=== PATIENT | female | born 1970 | race Caucasian/White ===

== ENCOUNTER → 2021-11-11 11:09 | Outpatient (CLI) | payer BC, SELFPAY ==
--- NOTE | ~2021-11-11 | XR_ITS ---
EXAM: XR knee RT 3V DATE: 11/11/2021 11:38 HISTORY: M25.569 - Pain in unspecified knee . COMPARISON: None available. FINDINGS: Normal mineralization. No fracture or dislocation. No lytic or blastic lesion. Joint space s are maintained. Mild patellofemoral osteophytosis and quadriceps enthesopathy. No erosion or perios teal change. Soft tissues within normal limits. Moderate volume joint fluid. IMPRESSION: No acute osseous finding in the right knee. Moderate right knee joint effusion.. Reviewed, dictated and finalized at location K. IMPRESSION: No acute osseous finding in the right knee. Moderate right knee tay nt effusion..
== END ==
PROVIDERS: PCP Internal Medicine; Visit Provider Internal Medicine
DX: M25.561 Pain in right knee (principal)
CPT/HCPCS: 73562

== ENCOUNTER → 2022-01-19 11:02 | Outpatient (CLI) | payer BC, SELFPAY ==
--- NOTE | ~2022-01-19 | XR_ITS ---
XR foot LT min 3V DATE: 01/19/2022 11:38 INDICATION: Left foot pain TECHNIQUE: 4 views COMPARISON: None FINDINGS: There is slight posterior and minimal plantar calcaneal enthesopathy. No fracture or dislocation, periosteal reaction or bone destruction is detected. IMPRESSION: Calcaneal enthesopathy Reviewed, dictated and finalized at location B. IMPRESSION: Calcaneal enthesopathy
== END ==
PROVIDERS: PCP Internal Medicine; Visit Provider Internal Medicine
DX: M79.672 Pain in left foot (principal); M77.32 Calcaneal spur, left foot
CPT/HCPCS: 73630

== ENCOUNTER → 2022-08-19 10:44 | Outpatient (CLI) | payer BC, SELFPAY ==
--- NOTE | ~2022-08-19 | CT_ITS ---
CT Scan of the Chest without Contrast: Clinical Indication: Lung cancer screening, 40 pack-year smoking history, current smoker Technique: Contiguous sections were acquired throughout the chest without intravenous contrast. Dose reduction technique was used on this scan by utilizing automated exposure control and iterative recon struction technique. The dose-length product (DLP) was 214.00 mGy-cm. Findings: There is no evidence of any significant mediastinal, hilar or axillary lymphadenopathy. The mediastin al soft tissues appear normal. There is no evidence of pleural or pericardial effusion. The lungs are clear. No pulmonary nodules or infiltrates are noted. Minimal right apical paraseptal e mphysematous change noted. Images through the upper abdomen reveal small left adrenal adenoma. Impression: Lung-RADS 1: Negative. 12 month follow-up screening CT advised. Reviewed, dictated and finalized at [facility]. Impression: Lung-RADS 1: Negative. 12 month follow-up screening CT advised.
== END ==
PROVIDERS: PCP Family Medicine; Visit Provider Family Medicine
DX: Z12.2 Encounter for screening for malignant neoplasm of respiratory organs (principal); F17.210 Nicotine dependence, cigarettes, uncomplicated
CPT/HCPCS: 71271

== ENCOUNTER 2023-06-29 08:59 | Outpatient (CLI) | payer BC, SELFPAY ==
--- NOTE | 2023-07-01 16:59 | WPDHOMESLEEP ---
Sleep Study - Home Unattended Date of Study: 06/29/23 Ordering Provider: Filippo Rodríguez DO Interpreting Provider: Sophie Hernandez MD Home Sleep Study Type: Watch PAT Height: 1.7 m Weight: 104.326 kg Body Mass Index: 36.0 Neck Circumference (inches): 15.25 [place]: 17 Reason for Sleep Study Hypersomnolence Sleep History Loli Jeffery is a 53-year-old woman with excessive daytime sleepiness. She has a family history of sleep issues, her mother uses CPAP. medical comorbidities include allergies, back shoulder and elbow pain, hot flashes and IBS with constipation. She rarely awakens from sleep short of breath. She frequently wakes at night with heartburn, belching or coughing.??She frequent snores, frequently snores loudly enough that others complain. She frequently has trouble sleeping when she has a cold. She rarely wakes up gasping for breath during the night. She occasionally has breathing problems at night reported to her by others. She frequently sweats excessively at night. She rarely notices her heart pounding or beating irregularly during the night. She constantly falls asleep during the day. She rarely falls asleep involuntarily, never falls asleep while driving. She never experiences loss of muscle tone with strong emotion. She never feels paralyzed on waking or falling asleep. She occasionally experiences vivid dreams upon waking or falling asleep. She never feels afraid of going to sleep. She rarely has nightmares. She rarely recalls her dreams. She rarely has thoughts racing through her mind. She never feels sad or depressed. She never feels anxiety. She rarely notices parts of her body jerk. She is not aware if she kicks during the night. She occasionally feels crawling or aching feelings in her legs. She frequently feels leg pain at night. She frequently has morning jaw pain, and frequently grinds her teeth at night. She frequently feels bothered by pain during the day, is occasionally awakened by pain during the night. She frequently wakes up feeling stiff in the morning, frequently wakes feeling sore or achy in the morning. She frequently awakens with pain in her neck, spine, or joints. She has headaches, bowel disturbances, fatigue, insomnia, and daily memory problems. She takes antacids regularly. She has had no change in her weight during the last year. Normal bedtime is between 9:00 p.m. and 11:00 p.m., falling asleep within 30 minutes to 45 minutes, waking 2-3 times during the night. While awake at night, she gets something to drink. She returns to sleep within 20-30 minutes.She wakes between 8:00 a.m. to 9:00 a.m., reports getting between 4 and 6 hours of sleep interrupted sleep per night. She takes naps in the afternoon or evening. A short nap lasting 10-15 minutes is not refreshing. She is usually drowsy all day long. Habits:??Tobacco: 0.5 to 1 pack per day for 35 years Caffeine: 1 pot of coffee per day. Alcohol: none Recreational substances: none [facility] Past Medical History Medical History (Updated 07/01/23 @ 18:04 by Sophie Hernandez MD) Anxiety and depression Hypersomnia Surgical History Surgical History H/O tubal ligation H/O: History of cholecystectomy Family History Family History Father Hypertension Family history of elevated blood lipids Family history of diabetes mellitus in first degree relative Mother Hypertension Family history of elevated blood lipids Family history of malignant neoplasm of breast in first degree relative Sibling Hypertension Family history of elevated blood lipids Grandparent Family history of heart disease in male family member before age 55 Social History Social History Social History: caffeine- 1.5 pots of coffee daily Smoking packs per day: 1 Smoking cigarett
[2023-07-01 17:52] VITALS: BMI 36.0
== END 2023-06-30 07:30 | disposition home or self-care (01) ==
LOC: ANHCSM 09:01
PROVIDERS: PCP Family Medicine; Visit Provider Family Medicine
DX: G47.33 Obstructive sleep apnea (adult) (pediatric) (principal); G47.10 Hypersomnia, unspecified; Z68.36 Body mass index [BMI] 36.0-36.9, adult
CPT/HCPCS: 95800

== ENCOUNTER 2023-07-07 08:40 | Outpatient (CLI) | payer BC, SELFPAY ==
--- NOTE | 2023-08-01 11:28 | WPDSLEEPSTUD ---
Sleep Study Date of Study: 07/07/23 Ordering Provider: Filippo Rodríguez DO Interpreting Physician: Sophie Hernandez MD Sleep Study Type: CPAP Titration Height: 1.7 m Weight: 102.965 kg Body Mass Index: 35.5 Neck Circumference (inches): 16 [place]: 17 Reason for Sleep Study Hypersomnolence; home sleep test using WatchPat on 06/29/2023 showing severe obstructive sleep apnea, the apnea-hypopnea index is 52.2, desaturation to 76% and loud continuous snoring.? The patient spent 29 minutes equal to or below 88% saturation, 5.3% of sleep time. She returns for CPAP titration. She has ?a history of grinding her teeth at night and restless leg symptoms. Sleep History Loli Jeffery is a 53-year-old woman with excessive daytime sleepiness, has severe obstructive sleep apnea on a home sleep test 06/29/2023. She has a family history of sleep issues, her mother uses CPAP. ? medical comorbidities include allergies, back shoulder and elbow pain, hot flashes and IBS with constipation. She rarely awakens from sleep short of breath.? She frequently wakes at night with heartburn, belching or coughing.??She frequent snores, frequently snores loudly enough that others complain. She frequently has trouble sleeping when she has a cold.? She rarely wakes up gasping for breath during the night. She occasionally has breathing problems at night reported to her by others. She frequently sweats excessively at night. She rarely notices her heart pounding or beating irregularly during the night.? She constantly falls asleep during the day.? She rarely falls asleep involuntarily, never falls asleep while driving. She never experiences loss of muscle tone with strong emotion.? She never feels paralyzed on waking or falling asleep. She occasionally experiences vivid dreams upon waking or falling asleep. She never feels afraid of going to sleep. She rarely has nightmares. She rarely recalls her dreams. She rarely has thoughts racing through her mind. She never feels sad or depressed. She never feels anxiety. She rarely notices parts of her body jerk.? She is not aware if she kicks during the night. She?occasionally feels crawling or aching feelings in her legs. She?frequently feels leg pain at night. She?frequently has morning jaw pain, and?frequently grinds her teeth?at night.? She frequently feels bothered by pain during the day, is occasionally awakened by pain during the night. She frequently wakes up feeling stiff in the morning,? frequently wakes feeling sore or achy in the morning.? She frequently awakens with pain in her neck, spine, or joints.? She has headaches, bowel disturbances, fatigue, insomnia, and daily memory problems. She takes antacids regularly.? She has had no change in her weight during the last year. Normal bedtime is between 9:00 p.m. and 11:00 p.m., falling asleep within 30 minutes to 45 minutes, waking 2-3 times during the night.? While awake at night, she gets something to drink.? She returns to sleep within 20-30 minutes.She wakes between 8:00 a.m. to 9:00 a.m., reports getting? between 4 and 6 hours of sleep interrupted sleep per night.? ? She takes naps in the afternoon or evening.? A short nap lasting 10-15 minutes is not refreshing.? She is usually drowsy all day long. Habits:??Tobacco: 0.5 to 1 pack per day for 35 years? ? Caffeine: 1 pot of coffee per day. ? Alcohol: none ? ? Recreational substances: none [facility] Past Medical History Medical History (Updated 08/01/23 @ 11:34 by Sophie Hernandez MD) Anxiety and depression Obstructive sleep apnea Surgical History Surgical History H/O tubal ligation H/O: History of cholecystectomy Family History Family History Father Hypertension Family history of elevated blood lipids Family history of diabetes mellitus in first degree relative Mother Hypertension Family history of elevat
[2023-08-02 12:20] VITALS: BMI 35.5
--- NOTE | 2023-08-02 12:47 | SLEEP ---
pt chose [facility]LE[facility]O- sukh mcmahon- in lab 07/07/23
== END 2023-07-08 06:11 | disposition home or self-care (01) ==
LOC: ANHCSM 08:40
PROVIDERS: PCP Family Medicine; Visit Provider Family Medicine
DX: G47.33 Obstructive sleep apnea (adult) (pediatric) (principal); Z68.35 Body mass index [BMI] 35.0-35.9, adult
CPT/HCPCS: 95811

== ENCOUNTER 2025-05-08 09:33 | Outpatient (CLI) | payer BC, SELFPAY ==
--- NOTE | ~2025-05-08 | CT_ITS ---
EXAMINATION:CT lung screening DATE: 05/08/2025 09:48 INDICATION: Screening TECHNIQUE: Computed tomography (CT) of the chest was performed without intravenous contrast. The dose-length product (DLP) was 136.62 mGy-cm. COMPARISON: August 192022 FINDINGS: 2 mm subpleural nodule in the mid right lung image 46 series 4. 4 x 3 mm pleural nodule image 21 series 4 posteriorly right upper lobe. No significant interval change from the previous exam. No acute process seen in the visualized portions of the upper abdomen. Mild fatty liver changes, cholecystectomy clips, and 1.5 cm left adrenal adenoma unchanged. No acute process seen in the bony thorax or extrathoracic soft tissues. IMPRESSION: 1. Radiographically benign nodules as above. Lung RADS 2. Recommend correlation with follow-up low-dose lung cancer screening chest CT in 12 months. 2. Other chronic findings as above. Reviewed, dictated and finalized at location A. [facility] TINTER
== END 2025-05-08 09:34 | disposition home or self-care (01) ==
LOC: MICIMG 09:33
PROVIDERS: PCP Family Medicine; Visit Provider Family Medicine
DX: Z12.2 Encounter for screening for malignant neoplasm of respiratory organs (principal); R91.8 Other nonspecific abnormal finding of lung field; D35.02 Benign neoplasm of left adrenal gland; K76.0 Fatty (change of) liver, not elsewhere classified; Z90.49 Acquired absence of other specified parts of digestive tract; Z87.891 Personal history of nicotine dependence
CPT/HCPCS: 71271